=== PATIENT | male | born 1940 | race Caucasian/White ===

== ENCOUNTER 2017-07-10 12:00 | Inpatient (IN) | payer MEDICARE ==
[~2017-07-10] VITALS: Ht 157.5 cm; Wt 76.4 kg
[~2017-07-10 12:00] MED LIST: AMLO5TAB2 PO; ASPI1TAB57 PO; CHOL5000 PO; FLUT1INH INH; LEFL1TAB3 PO; LISI10TA3 PO; OCUVTAB4 PO; OMEP20TA93 PO; PRAV20TA2 PO; TRIA37.5 PO; VITA10002 PO; VITA500C18 PO
[2017-07-13] MEDS ORDERED: LACTATED RINGER'S 1000 ML IV PRN (06:15)
[2017-07-13] MEDS ORDERED: SODIUM CHLORID 0.9% 500 ML IV PRN (06:15)
[2017-07-13] MEDS ORDERED: INSULIN HUMAN REGULAR 1,000 UNITS/10 ML VIAL SQ PRN (06:15)
[2017-07-13] MEDS ORDERED: ceFAZolin 1,000 MG/NS 100 ML IV SCH ×2 (06:15)
[2017-07-13] MEDS ORDERED: LACTATED RINGER'S 1000 ML INJ 1,000 ML IV SCH (06:15)
[2017-07-13] MEDS ORDERED: METOPROLOL TARTRATE 25 MG TAB PO PRN (06:15)
[2017-07-13] MEDS ORDERED: POVIDONE IODINE 5% (ANTISEPSIS KIT) 4 APPLICATIONS EACH NARE PRN (06:15)
[2017-07-13] MEDS ORDERED: CHLORHEXIDINE GLUCONATE 2 % 1 PACK (2 CLOTHS) TOPICAL PRN (06:15)
[2017-07-13] MEDS ORDERED: THROMBIN (TOPICAL) 5,000 UNIT VIAL ONE (07:09)
[2017-07-13] MEDS ORDERED: LIDOCAINE 1%/EPINEPHrine 1:100,000 SOLN 30 ML VIAL ONE (07:09)
[2017-07-13] MEDS ORDERED: GENTAMICIN SULFATE 80 MG/2 ML VIAL ONE (07:10)
[2017-07-13] MEDS ORDERED: GELFOAM SIZE 100 ONE (07:10)
[2017-07-13] MEDS ORDERED: BUPIVACAINE HCL PF 0.25% 30 ML VIAL ONE (07:10)
[2017-07-13] MEDS ORDERED: ACETAMINOPHEN 1000 MG/100 ML 100 ML IV ONE (07:28)
[2017-07-13] MEDS ORDERED: BUPIVACAINE LIPOSOME PF 1.3% 20 ML VIAL ONE (07:36)
[2017-07-13] MEDS ORDERED: ceFAZolin 2 GM PREMIX 0 ML ONE (07:41)
[2017-07-13] MEDS ORDERED: DO NOT ADM ANY ANTICOAGULANT DRUGS PRN (11:56)
[2017-07-13] MEDS ORDERED: PROPOFOL 200 MG/20 ML AMP IV ONE (12:00)
[2017-07-13] MEDS ORDERED: GLYCOPYRROLATE 1 MG/5 ML SYRINGE IV PUSH ONE (12:00)
[2017-07-13] MEDS ORDERED: ceFAZolin INJ 1,000 MG VIAL IV ONE (12:00)
[2017-07-13] MEDS ORDERED: ONDANSETRON HCL 4 MG/2 ML VIAL IV ONE (12:00)
[2017-07-13] MEDS ORDERED: LIDOCAINE HCL 1% PF 5 ML SYRINGE OTHER ONE (12:00)
[2017-07-13] MEDS ORDERED: NEOSTIGMINE 5 MG/5 ML SYRINGE IV PUSH ONE (12:00)
[2017-07-13] MEDS ORDERED: DEXAMETHASONE SOD PHOS 4 MG/ML VIAL IV ONE (12:00)
[2017-07-13] MEDS ORDERED: ePHEDrine/NS 25 MG/5 ML SYRINGE IV ONE (12:00)
[2017-07-13] MEDS ORDERED: LACTATED RINGER'S 1000 ML INJ 1,000 ML IV ONE (12:00)
[2017-07-13] MEDS ORDERED: ROCURONIUM INJ 50 MG/5 ML SYRINGE IV PUSH ONE (12:00)
--- NOTE | 2017-07-13 12:05 | RADRPT ---
EXAM DATE/TIME: 07/13/2017 09:37 [place] COMPARISON: No previous studies available for comparison. INDICATIONS : L4-L5 and L5-S1 doreen-laminectomy. Level localization. MEDICAL HISTORY : None. SURGICAL HISTORY : None. ENCOUNTER: Initial ACUITY: 1 day PAIN SCORE: Non-responsive. LOCATION: Lumbar spine. FINDINGS: A single crosstable lateral view of the lumbar spine was obtained intraoperatively using the matrix c amera and demonstrates posterior surgical retractors in place as well as a metallic probe posterior t o the L4-5 interspace. Study is labeled as having 5 [id number] lumbar-type vertebra. Diffuse deg enerative disc changes are present. CONCLUSION: Limited localization study as described. Wing Melton MD on July 13, 2017 at 12:02 Board Certified Radiologist. This report was verified electronically.
--- NOTE | 2017-07-13 12:11 | PD.OP ---
Operative Report Date of Surgery: July 13, 2017 Preoperative Diagnosis: (1) Herniated nucleus pulposus, lumbar (2) Lumbar radiculopathy (3) Synovial cyst of lumbar spine 1. Left L4-5 sequestered herniated nucleus pulposus extending to the L5-S1 disc level. 2. Left L5-S1 synovial cyst 3. Left lumbar radiculopathy Postoperative Diagnosis: (1) Herniated nucleus pulposus, lumbar (2) Lumbar radiculopathy (3) Synovial cyst of lumbar spine 1. Left L4-5 sequestered herniated nucleus pulposus extending to the L5-S1 disc level. 2. Left L5-S1 synovial cyst 3. Left lumbar radiculopathy Procedure: 1. Left L4-5 and L5-S1 decompressive semi-laminectomy 2. Left L4-5 discectomy, resection sequestered disc herniation 3. Left L5-S1 synovial cyst resection Anesthesia: General Surgeon: Dylan Sandoval Nurses Aide(s): Kelley Peralta Operation and Findings: Indications: 77-year-old male with left L5 radicular symptoms, positive left tibialis anterior and peroneus longus and brevis motor deficit with 2+/5 strength on preoperative exam. Findings: Very poor bone quality. Large partially desiccated left L4-5 herniated nucleus pulposus extending caudal to the left L5 pedicle in the lateral recess with significant left L5 nerve compression. Moderate left L5-S1 synovial cyst impinging on the dorsal lateral thecal sac Procedure in detail The patient was brought into the operating room and general endotracheal anesthesia induced without difficulty. Knee-high sequential compression devices were placed. Lines were established by Anesthesia The patient was placed in prone position on the concentric Nelson table with the side bolsters and all extremities appropriately padded Appropriate timeout procedure was performed with all personal present and in agreement The lumbar region was shaved with clippers and sterilely prepped and draped. 1% Xylocaine with epinephrine was used for local infiltration over the incision site which was made just to the left of midline at the L4-S1 level. The incision was carried sharply down to the lumbodorsal fascia which was incised just adjacent to the spinous processes. Walton elevator was used for subperiosteal elevation of paraspinous musculature and fascia away from the lamina and spinous process The deep self-retaining retractor was placed. The appropriate level was verified with intraoperative C-arm. The microscope was moved into place and used for the remainder of the procedure including the closure. The TPS drill with the 5 mm bone bur followed by the 3 mm Kerrison rongeur was used to remove the inferior aspect of the left L4 lamina and the superior third of the left L5 lamina as well as the inferior aspect of the left L5 lamina and a small amount of the superior left S1 lamina, along with a small amount of the medial facet at each level sufficient to gain access to the lateral recess without significant nerve root or thecal sac retraction. The ligamentum flavum was elevated away from the thecal sac at the left L4-5 and L5-S1 levels and resected with the Kerrison rongeur which was also used to further remove ligamentum along the lateral recess. At the left L5-S1 level, a moderate synovial cyst was encountered which was impinging on the dorsal lateral left thecal sac. This was elevated away from the thecal sac and exiting nerve root and resected with the Kerrison rongeur and the remaining facet capsule was cauterized with the bipolar forceps. The exiting nerve root at each level was traced down to the medial aspect of the inferior pedicle and traced back to the exit from the thecal sac. The thecal sac and exiting nerve root were then retracted gently medially revealing the underlying disc and annulus. The patient was noted to have a prominent sequestered herniated nucleus pulposus emanating from the left L4-5 disc space which was significantly impinging on the overlying exiting nerve root and thecal sac. The disc and annulus at the left L4-5 level were incised with the 11 blade knife and discectomy performed with the pituitary biopsy forceps and the straight and angled curettes. Any loose pieces of disc material in the intervertebral disc space were carefully removed. The reverse curette and long blunt nerve hook were then used to free up the sequestered disc fragments extending down along the left lateral recess to nearly the level of the left L5 5-S1 disc space. The neural structures appeared well decompressed at the end of the procedure. Bleeding was carefully controlled with bone wax for the bone bleeding and bipolar forceps. No cerebrospinal fluid leakage was encountered. There was a mild to moderate amount of residual bleeding emanating from the epidural space at the time of closure. This was not well controlled with temporary application of Gelfoam and thrombin. It was elected to leave a 10 [place] drain at the operative site, which was brought out through a small incision at the left mid lumbar region and secured to the skin with nylon suture. The closure was performed with 0 Vicryl interrupted for the deep and superficial fascia, with 3-0 Vicryl interrupted for the subcutaneous closure, and 4-0 Vicryl running for the subcuticular closure. The dressing of sterile Mastisol, Steri-Strips, and Primapore dressing was applied. The patient was taken to recovery room in stable condition. All counts were correct at the end of the case. No specimen was sent to pathology. Estimated blood loss was 150 cc . Dylan Sandoval MD July 13, 2017 12:11
[2017-07-13] MEDS ORDERED: *morphine SULFATE 4 MG/ML PERIprocedure ONLY ONE ×2 (12:17→12:34)
[2017-07-13] MEDS ORDERED: HYDR-3583 PO (12:22)
[2017-07-13] MEDS ORDERED: *RESP: ALBUTEROL 2.5 MG/3 ML NEB (PRN) PERIprocedural Use ONLY NEB ONE (12:38)
[2017-07-13] MEDS ORDERED: ACETAMINOPHEN/HYDROcodone 325 MG/10 MG TAB PO PRN (13:45)
[2017-07-13] MEDS ORDERED: ONDANSETRON HCL 4 MG/2 ML VIAL IV PUSH PRN (13:45)
[2017-07-13 15:23] VITALS: BP 118/58; PULSE 86; RESP 16; TEMP 98.5; O2SAT 92
== END 2017-07-13 13:46 | disposition home or self-care (01) | DRG 520 ==
LOC: HSDI 07-13 05:48
PROVIDERS: ADMIT Neurological Surgery; ATTEND Neurological Surgery
PROC: 01NB0ZZ Release Lumbar Nerve, Open Approach (ICD-10-PCS; 2017-07-13)
PROC: 0SB30ZZ Excision of Lumbosacral Joint, Open Approach (ICD-10-PCS; 2017-07-13)
PROC: 0ST20ZZ Resection of Lumbar Vertebral Disc, Open Approach (ICD-10-PCS; principal; 2017-07-13 08:46)
DX: M51.16 Intervertebral disc disorders with radiculopathy, lumbar region (principal); I10 Essential (primary) hypertension; M71.38 Other bursal cyst, other site; E78.5 Hyperlipidemia, unspecified; K21.9 Gastro-esophageal reflux disease without esophagitis; M43.16 Spondylolisthesis, lumbar region; Z87.891 Personal history of nicotine dependence; M79.609 Pain in unspecified limb; M48.062 Spinal stenosis, lumbar region with neurogenic claudication; R94.31 Abnormal electrocardiogram [ECG] [EKG]
CPT/HCPCS: 72020; 76000; 94150; 94664; C9290; J0131; J0690; J1100; J1580; J2270; J2405; J2710; J3010; J7120; J7613

== ENCOUNTER → 2017-07-10 | Outpatient (CLI) | payer MEDICARE ==
[2017-07-10 10:52] LABS: AUTOMATED NEUTROPHIL # 3.5 TH/MM3 (1.8-7.7); BASOPHIL # 0.1 TH/MM3 (0-0.2); EOSINOPHIL # 0.1 TH/MM3 (0-0.4); EOSINOPHIL % 2.7 % (0.0-4.0); HEMATOCRIT 33.2 % (39.0-51.0); HEMO FLAGS DIFF FINAL; HEMOGLOBIN 11.2 GM/DL (13.0-17.0); LYMPH % 16.1 % (9.0-44.0); LYMPHOCYTE # 0.8 TH/MM3 (1.0-4.8); MEAN CELL VOLUME 94.2 FL (80.0-100.0); MEAN CORPUSCULAR HEMOGLOBIN 31.8 PG (27.0-34.0); MEAN CORPUSCULAR HGB CONC 33.7 % (32.0-36.0); MEAN PLATELET VOLUME 8.4 FL (7.0-11.0); MONOCYTE # 0.5 TH/MM3 (0-0.9); NEUT % 70.2 % (16.0-70.0); PLATELET COUNT 149 TH/MM3 (150-450); RED BLOOD COUNT 3.52 MIL/MM3 (4.50-5.90); RED CELL DISTRIBUTION WIDTH 17.3 % (11.6-17.2); WHITE BLOOD COUNT 5.1 TH/MM3 (4.0-11.0)
[2017-07-10 10:59] LABS: APTT (PATIENT) 25.4 SEC (24.3-30.1); PROTHROMBIN TIME - PATIENT 10.6 SEC (9.8-11.6)
[2017-07-10 11:14] LABS: ANION GAP 8 MEQ/L (5-15); BICARBONATE 26.3 MEQ/L (21.0-32.0); BLOOD UREA NITROGEN 15 MG/DL (7-18); CALCIUM 8.7 MG/DL (8.5-10.1); CHLORIDE 107 MEQ/L (98-107); CREATININE 1.16 MG/DL (0.60-1.30); GLOMERULAR FILTRATION RATE 61 ML/MIN (>89); GLUCOSE,FASTING 94 MG/DL (74-99); POTASSIUM 3.8 MEQ/L (3.5-5.1); SODIUM (NA) 141 MEQ/L (136-145)
[2017-07-10 12:34] LABS: MRSA PCR POSITIVE (NEGATIVE); STAPH AUREUS PCR POSITIVE (NEGATIVE)
== END ==
LOC: CPRE 09:54
DX: Z01.810 Encounter for preprocedural cardiovascular examination (principal); Z01.811 Encounter for preprocedural respiratory examination; Z01.812 Encounter for preprocedural laboratory examination; Z01.818 Encounter for other preprocedural examination; M79.609 Pain in unspecified limb; M48.062 Spinal stenosis, lumbar region with neurogenic claudication; M51.16 Intervertebral disc disorders with radiculopathy, lumbar region; M71.30 Other bursal cyst, unspecified site; R94.31 Abnormal electrocardiogram [ECG] [EKG]
CPT/HCPCS: 36415; 71046; 80048; 85025; 85610; 85730; 87640; 87641; 93005